=== PATIENT | female | born 2000 | race Hispanic/Latino ===

== ENCOUNTER 2018-07-13 06:44 | Emergency (ER) | payer OTHER ==
[2018-07-13 08:54] LABS: AMORPHOUS SEDIMENT RFX SMALL (NEGATIVE); KETONE, URINE AUTO RFX NEGATIVE (NEGATIVE); NITRITE, URINE AUTO RFX NEGATIVE (NEGATIVE); RBC, URINE AUTO RFX 12 /HPF (0-3); SPECIFIC GRAVITY UR AUTO RFX 1.017 (1.002-1.035); SQUAM EPITHELIAL CELL UR AURFX 36 /HPF (0-6)
[2018-07-13 08:56] LABS: LEUKOCYTE ESTERASE UR AUTO RFX 3+ (NEGATIVE); WBC, URINE AUTO RFX 95 /HPF (0-3)
== END 2018-07-13 10:11 | disposition home or self-care (01) ==
LOC: M ED 06:44
DX: O26.891 Other specified pregnancy related conditions, first trimester (principal); Z3A.13 13 weeks gestation of pregnancy
CPT/HCPCS: 76801

== ENCOUNTER 2018-08-15 10:01 | Emergency (ER) | payer OTHER ==
[2018-08-15] MEDS: NS 1,000 ML IV (10:29)
[2018-08-15 10:37] LABS: BASO % 0.2 % (0.0-1.0); EOS % 0.2 % (0.0-3.0); HEMATOCRIT 37.4 % (36.0-47.0); HEMOGLOBIN 12.4 g/dl (12.0-15.5); IMMATURE GRANULOCYTE % 0.5 % (0-3.0); LYMPH # 1.4 10^3/uL (1.5-6.5); LYMPH % 16.1 % (24.0-44.0); MEAN CORPUSCULAR HEMOGLOBIN 29.9 pg (27.0-33.0); MEAN CORPUSCULAR HGB CONC 33.2 g/dl (32.0-36.5); MEAN CORPUSCULAR VOLUME 90.1 fl (80.0-96.0); MONO # 0.4 10^3/uL (0.0-0.8); MONO % 4.5 % (0.0-5.0); NEUTROPHILS # 6.6 10^3/uL (1.8-7.7); NEUTROPHILS % 78.5 % (36.0-66.0); PLATELET COUNT, AUTOMATED 145 10^3/uL (150-450); RED BLOOD COUNT 4.15 10^6/uL (4.00-5.40); RED CELL DISTRIBUTION WIDTH 12.7 % (11.5-14.5); WHITE BLOOD COUNT 8.5 10^3/uL (4.0-10.0)
[2018-08-15 10:43] LABS: AMORPHOUS SEDIMENT RFX SMALL (NEGATIVE); KETONE, URINE AUTO RFX NEGATIVE (NEGATIVE); MUCUS, URINE RFX SMALL (NEGATIVE); NITRITE, URINE AUTO RFX NEGATIVE (NEGATIVE); RBC, URINE AUTO RFX 2 /HPF (0-3); SPECIFIC GRAVITY UR AUTO RFX 1.015 (1.002-1.035); SQUAM EPITHELIAL CELL UR AURFX 7 /HPF (0-6)
[2018-08-15 10:51] LABS: LEUKOCYTE ESTERASE UR AUTO RFX 3+ (NEGATIVE); WBC, URINE AUTO RFX 15 /HPF (0-3)
== END 2018-08-15 11:46 | disposition home or self-care (01) ==
LOC: M ED 10:01
DX: O23.12 Infections of bladder in pregnancy, second trimester (principal); Z3A.18 18 weeks gestation of pregnancy
CPT/HCPCS: 76811

== ENCOUNTER 2018-10-18 13:55 | Emergency (ER) | payer OTHER ==
[~2018-10-18] VITALS: Ht 165.1 cm; Wt 78.2 kg
[~2018-10-18 13:55] MED LIST: MACR100C43 PO
[2018-10-18 15:57] VITALS: BP 124/70
== END 2018-10-18 15:59 | disposition home or self-care (01) ==
LOC: M ED 13:55
DX: O99.719 Diseases of the skin and subcutaneous tissue complicating pregnancy, unspecified trimester (principal)

== ENCOUNTER 2018-12-03 10:43 | Outpatient (CLI) | payer OTHER ==
[~2018-12-03] VITALS: Ht 165.1 cm; Wt 84.1 kg
--- NOTE | 2018-12-03 12:10 | IPNPDOC ---
Text Note Date of Service The patient was seen on 12/03/18. NOTE 18 yo at 33+6 weeks presents to L&D with the complaint of left sided abdominal pain that started at 0800 this AM. She describes it as an occasionally sharp, squeezing sensation. It seems to be worse when her baby kicks or moves. She denies any vaginal bleeding. She reports some slight discharge this AM but denies any leakage of fluid. She endorses excellent movement. She also denies any fevers/chills, SOB, chest pain, dysuria, constipation, or urinary frequency/urgency. She has been tolerating a regular diet without issues and denies any nausea or vomiting. She also denies any recent trauma such as falls or recent intercourse. She admits to doing PT this AM on a bicycle. Chaperoned by L&D RN Vitals - VSS, afebrile, normotensive, non tachycardic General - AAOX3, sitting up in bed, NAD, pleasant and conversant Abdomen - Gravid uterus, no fundal tenderness. Mild tenderness to palpation at left sided abdominal wall, just superior to LLQ. No rebound tenderness or guarding. Cervix - Cl/thick/high, posterior. No bleeding. Bedside TAUS - Viable SIUP in cephalic presentation. Anterior placenta. Tenderness appears to be in location of movement of upper extremities. Very active fetus. YENY subjectively normal. FHR tracing - Reactive NST with +accels, no decels. No ctx on toco. No evidence of labor, infection, or acute intra abdominal abnormality. Pain appears to be MSK in origin based on clinical history and exam findings. status is reassuring. Ordered flexeril to be taken at [facility]. Also recommended heating pads and tylenol. Return to care for worsening pain, fevers/chills, SOB, n/v, bleeding, leakage of fluid, decreased movement, or any other urgent concerns. All patient questions answered. DO JOANNE Peters CHRISTOPHER J. DO Dec 03, 2018 12:10
== END 2018-12-03 11:52 | disposition home or self-care (01) ==
LOC: M LDO 10:43
PROVIDERS: ATTEND Obstetrics & Gynecology
DX: O26.893 Other specified pregnancy related conditions, third trimester (principal); R10.32 Left lower quadrant pain; Z3A.33 33 weeks gestation of pregnancy
CPT/HCPCS: 59025; 76815; G0378; G0463

== ENCOUNTER 2018-12-21 18:20 | Outpatient (CLI) | payer OTHER ==
[~2018-12-21] VITALS: Ht 165.1 cm; Wt 85.1 kg
[2018-12-21 18:35] VITALS: BP 133/77
[2018-12-21] MEDS ORDERED: VALA500T5 PO (18:41)
[2018-12-21 19:56] VITALS: BP 142/65
[2018-12-21] MEDS ORDERED: LACTATED RINGER'S 1000 ML IV STA (20:17)
[2018-12-21] MEDS ORDERED: LR 1,000 ML IV SCH (20:17)
[2018-12-21 20:47] VITALS: BP 128/65
[2018-12-21 20:54] LABS: APPEARANCE, URINE CLOUDY (CLEAR); BACTERIA, URINE AUTO 1+ (NEGATIVE); BILIRUBIN, URINE AUTO NEGATIVE (NEGATIVE); BLOOD, URINE BLOOD NEGATIVE (NEGATIVE); COLOR, URINE YELLOW (YELLOW); GLUCOSE, URINE (UA) AUTO 1+ mg/dL (NEGATIVE); KETONE, URINE AUTO TRACE mg/dL (NEGATIVE); LEUKOCYTE ESTERASE, URINE AUTO 3+ (NEGATIVE); MUCUS, URINE SMALL (NEGATIVE); NITRITE, URINE AUTO NEGATIVE (NEGATIVE); PROTEIN, URINE AUTO 1+ mg/dL (NEGATIVE); RBC, URINE AUTO 2 /HPF (0-3); SPECIFIC GRAVITY URINE AUTO 1.025 (1.002-1.035); SQUAMOUS EPITHELIAL CELL UR AU 14 /HPF (0-6); WBC, URINE AUTO 110 /HPF (0-3)
[2018-12-21 21:50] LABS: APPEARANCE, URINE CLEAR (CLEAR); BACTERIA, URINE AUTO NEGATIVE (NEGATIVE); BILIRUBIN, URINE AUTO NEGATIVE (NEGATIVE); BLOOD, URINE BLOOD NEGATIVE (NEGATIVE); COLOR, URINE YELLOW (YELLOW); GLUCOSE, URINE (UA) AUTO NEGATIVE (NEGATIVE); KETONE, URINE AUTO 1+ mg/dL (NEGATIVE); LEUKOCYTE ESTERASE, URINE AUTO NEGATIVE (NEGATIVE); NITRITE, URINE AUTO NEGATIVE (NEGATIVE); PROTEIN, URINE AUTO NEGATIVE (NEGATIVE); RBC, URINE AUTO 1 /HPF (0-3); SQUAMOUS EPITHELIAL CELL UR AU 0 /HPF (0-6); UROBILINOGEN, URINE AUTO 0.2 mg/dL (0.0-2.0); WBC, URINE AUTO 9 /HPF (0-3)
--- NOTE | 2018-12-21 21:57 | IPNPDOC ---
Text Note Date of Service The patient was seen on 12/21/18. NOTE Triage Note Anitha is a 18yo with SIUP at approx 36wk who presents with CC of uncomfortable ctx that began about an hour before she came in, at 1730. She has had no LOF, no vaginal bleeding. Good movement. No other sx. 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 SCE cl/th/high, ctx spaced after receiving IVF. Vitals wnl, benign exam, reassuring status. No e/o UTI. Plan: -safe for discharge home -pt encouraged to hydrate well and rest -keep next routine scheduled OB appt Dr. Susan Dean MD VS,Celine, I+O VS, Celine, I+O Vital Signs Date Time Temp Pulse Resp B/P (MAP) Pulse Ox O2 Delivery O2 Flow Rate FiO2 12/21/18 20:47 94 18 128/65 (86) 12/21/18 19:56 98.7 Susan Dean MD Dec 21, 2018 21:46
== END 2018-12-21 22:09 | disposition home or self-care (01) ==
LOC: M LDO 18:20
PROVIDERS: ATTEND Obstetrics & Gynecology
DX: O26.893 Other specified pregnancy related conditions, third trimester (principal); O47.03 False labor before 37 completed weeks of gestation, third trimester; Z3A.36 36 weeks gestation of pregnancy
CPT/HCPCS: 59025; 81001; 87086; G0378; G0463

== ENCOUNTER 2019-01-05 02:03 | Outpatient (CLI) | payer OTHER ==
[~2019-01-05] VITALS: Ht 165.1 cm; Wt 87.0 kg
[~2019-01-05 02:03] MED LIST changes: +VALA500T5 PO
[2019-01-05 02:22] VITALS: BP 121/81
[2019-01-05 02:57] VITALS: BP 121/75
--- NOTE | 2019-01-05 03:07 | IPNPDOC ---
Text Note Date of Service The patient was seen on 01/05/19. NOTE 19 yo at 38+4 weeks presents to L&D with the complaint of contractions every 15 minutes. She denies any vaginal bleeding or leakage of fluid. She endorses excellent movement. 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 Chaperoned by L&D RN Vitals - VSS, afebrile, normotensive, non tachycardic General - AAOX3, sitting up in bed, NAD Abdomen - Gravid uterus, no fundal tenderness Cervix - Ft/thick/high, posterior FHR: Reactive NST with moderate variability, +accels, no decels. Uterine irritability on toco Patient not in labor. Cervix closed and no ctx seen on toco. Reassuring status. Patient discharged home with return precautions. All questions answered. Sandeep Peters DO A-FIB/CHADSVASC A-FIB History Current/History of A-Fib/PAF?: No SANDEEP PETERS DO Jan 05, 2019 03:07
== END 2019-01-05 03:24 | disposition home or self-care (01) ==
LOC: M LDO 02:03
PROVIDERS: ATTEND Obstetrics & Gynecology
DX: O47.1 False labor at or after 37 completed weeks of gestation (principal); Z3A.38 38 weeks gestation of pregnancy
CPT/HCPCS: 59025; G0378; G0463

== ENCOUNTER 2019-01-09 09:08 | Outpatient (CLI) | payer OTHER ==
[~2019-01-09] VITALS: Ht 165.1 cm; Wt 89.9 kg
[2019-01-09 09:24] VITALS: BP 134/84
[2019-01-09 11:00] VITALS: BP 134/79
== END 2019-01-09 11:16 | disposition home or self-care (01) ==
LOC: M LDO 09:08
PROVIDERS: ATTEND Obstetrics & Gynecology
DX: O47.1 False labor at or after 37 completed weeks of gestation (principal); Z3A.39 39 weeks gestation of pregnancy
CPT/HCPCS: 59025; G0378; G0463

== ENCOUNTER 2019-01-17 18:02 | Inpatient (IN) | payer OTHER ==
[~2019-01-17] VITALS: Ht 165.1 cm; Wt 89.5 kg
[2019-01-17] VITALS (18 sets, daily range): BP systolic 115–143; BP diastolic 57–81
[2019-01-17] MEDS ORDERED: PENICILLIN G POTASSIUM IV 5 MU in D5W MINI-BAG PLUS 100 ML IV STA (19:31)
[2019-01-17] MEDS: LR 1,000 ML IV SCH (19:31)
[2019-01-17] MEDS ORDERED: LACTATED RINGER'S 1000 ML IV STA (19:31)
[2019-01-17] MEDS ORDERED: PROMETHAZINE INJ 25 MG/ML VIAL (J2550) As Ordered ONE (20:03)
--- NOTE | 2019-01-17 20:03 | HPEPDOC ---
Obstetrical History & Physical General Date of Admission January 17, 2019 at 19:21 History of Present Illness Anitha is a 19yo with SIUP at 40w2d by lmp c/w 7wk u/s who presents for leakage of clear fluid since 1729 tonight. She notes very large gush earlier and continued leaking since. Starting to feel more regular ctx, not very uncomfortable yet. No vaginal bleeding. Feels movement. No f/c/n/v. 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 History: Herpes simplex virus(HSV) (no hx of any outbreak that patient knows of) Past Medical History Medical History Overweight (BMI 27) Surgical History: [place] teeth Family History Significant Family History: No pertinent family hx Social History Marital Status: Other (engaged) Psychosocial History: No pertinent psych hx * Smoker: non-smoker Alcohol: Denies Drugs: denies Imunizations Tdap status: current Influenza Status: current Allergies Coded Allergies: No Known Allergies (Unverified , 07/13/18) Medications Scheduled Valacyclovir HCl (Valacyclovir) 500 Mg Tablet, 1 TAB PO DAILY Physical Examination Physical Examination GENERAL: Alert and oriented times three. ABDOMEN: Gravid and non-tender to touch. 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): glistening on perineum, pooling of clear fluid in vagina, nitrazine positive, NO HSV lesions of vulva/vaginal vault/cervix Vital Signs/I&O Vital Signs Date Time Temp Pulse Resp B/P (MAP) Pulse Ox O2 Delivery O2 Flow Rate FiO2 5/9/19 18:19 98.8 108 18 126/77 (93) Pertinent Laboratoy Data Blood Type: O+ RBC Antibody Screen: Negative HIV: Negative Hepatitis B: Negative Hepatitis C: Unknown Rapid Plasma Reagin: Nonreactive Rubella: Immune Varicella: Immune Chlamydia/Gonorrhea: Negative Group B Streptococcus: Positive Cystic Fibrosis: Negative Glucose Tolerance Test: 157 (94/192/156/147) Anatomy Ultrasound Ultrasound Date: Aug 28, 2018 Placenta Location: Anterior Normal Anatomy: Yes Placenta Previa: No Steroid Therapy Steroid Therapy: No Vaginal Examination Dilation: 4 cm Effacement: 70% Station: -2 Cervical Consistency: Soft Cervical Position: Middle Presentation: Cephalic presentation Assessment Heart Rate (FHR): 140 Variability: Moderate Accelerations: Positive Decelerations: None Tocometer Contractions: Yes Frequency: irregular, every 3-7 min. Duration: greater than 60 seconds Strength: palpated as mild Assessment/Plan Assessment Anitha is a 19yo with SIUP at 40w2d by lmp c/w 7wk u/s with SROM, clear, 1730 tonight. GBS positive. SCE 4/75/-2. Irregular ctx. Cat I FHRT. Vitals wnl. SSE shows no HSV lesions. Cephalic by SCE. Positive nitrazine/pooling- grossly ruptured. A1GDM, overweight (starting BMI 27) with excessive weight gain (39lb), HSV IgM positive during but no history of any outbreak ever (taking valtrex since 36wk), molluscum contagiosum over buttocks Plan Admit and orient. Marketing Project Lead and consent. Diet: clear liquids Group B Streptococcus (GBS) positive, PCN per protocol Labs and intravenous (IV) per unit protocol. Lactated Ringers (LR): Bolus 1000 mL, then at 125 mL/hr. Anticipate normal spontaneous delivery () Stadol/phenergan for pain in latent labor, candidate for epidural in active lab or MD Jermaine Tripathi Katrina D MD January 17, 2019 19:54
[2019-01-17] MEDS ORDERED: PROMETHAZINE INJ 25 MG/ML VIAL (J2550) IV ONE (20:15)
[2019-01-17] MEDS ORDERED: BUTORPHANOL 2 MG/ML INJ (J0595) IV ONE (20:15)
[2019-01-17 20:18] LABS: HEMATOCRIT 33.1 % (36.0-47.0); HEMOGLOBIN 10.4 g/dl (12.0-15.5); MEAN CORPUSCULAR HEMOGLOBIN 26.1 pg (27.0-33.0); MEAN CORPUSCULAR HGB CONC 31.4 g/dl (32.0-36.5); PLATELET COUNT, AUTOMATED 178 10^3/uL (150-450); RED BLOOD COUNT 3.99 10^6/uL (4.00-5.40); WHITE BLOOD COUNT 10.8 10^3/uL (4.0-10.0)
[2019-01-17] MEDS ORDERED: FENTANYL 2MCG/ML ROPIVACAINE 0.2% IN 0.9% NACL 100ML IVBAG As Ordered ONE (21:56)
[2019-01-17] MEDS ORDERED: EPIDURAL/PCA KEYS XX PRN (23:30)
[2019-01-17] MEDS ORDERED: FENTANYL/ROPIVACAINE/NACL BAG 100 ML EPIDURAL SCH (23:30)
[2019-01-17] MEDS ORDERED: diphenhydrAMINE INJ 50MG/ML VIAL (J1200) IV PRN (23:30)
[2019-01-17] MEDS ORDERED: ePHEDrine SULFATE 25 MG/5 ML(5MG/ML) SYRINGE IV PRN (23:30)
[2019-01-17] MEDS ORDERED: ONDANSETRON 4MG/2ML VIAL (J2405) IV PRN (23:30)
[2019-01-17] MEDS ORDERED: NALOXONE INJ 0.4 MG/1 ML VIAL (J2310) IV PRN (23:30)
[2019-01-17] MEDS ORDERED: REFRIGERATOR IV KEYS XX PRN (23:30)
[2019-01-17] MEDS ORDERED: EPIDURAL COMMENT XX SCH (23:30)
[2019-01-17] MEDS ORDERED: LACTATED RINGER'S 1000 ML IV PRN (23:30)
[2019-01-18] VITALS (15 sets, daily range): BP systolic 118–139; BP diastolic 62–83
[2019-01-18] MEDS ORDERED: PENICILLIN G POTASSIUM IV 2.5 MU in APPROPRIATE DILUENT 1 EA IV SCH ×2
[2019-01-18] MEDS ORDERED: OXYTOCIN 30 UNITS IN 0.9% NaCl 500ML IV BAG (J2590) As Ordered ONE (03:03)
[2019-01-18] MEDS: LR 1,000 ML IV SCH (03:31)
--- NOTE | 2019-01-18 04:20 | DNPDOC ---
[facility] Delivery Note Delivery Note DATE OF DELIVERY: 18 Jan 2019 PREDELIVERY DIAGNOSIS: 40w3d SROM POST DELIVERY DIAGNOSIS: Delivered PROCEDURE: Spontaneous vaginal delivery FIRE MANAGEMENT SPECIALIST: Dr. Susan Dean MD ANESTHESIA: epidural, 10cc of 1% lidocaine for repair ESTIMATED BLOOD LOSS: 250 mL FINDINGS: 7 pound 12 ounce (3510g) female infant, Score 9/9 DELIVERY SUMMARY: Anitha is a 19yo [id number] s/p uncomplicated at 40w3d after presenting with clear SROM that occurred at 17:30, delivering at 03:47 on 18 Jan 2019. She presented at 4cm, received an epidural and progressed to C/C/+1 at which point she began pushing. head delivered OA, restituted CICI. Left anterior shoulder delivered easily, right compound hand noted, posterior shoulder and corpus followed. Infant was vigorous with spontaneous cry, placed on maternal abdomen. Nose and mouth were suctioned with bulb suction, apgars 9/9. Cord clamped x2 after 2 minutes and cut by FOB. Cord blood obtained for MBT O pos. Uterine massage performed, traction on the umbilical cord, placenta delivered spontaneously and intact with 3 vessel centrally inserted cord. IV pitocin was given per protocol, bimanual massage was performed and uterus then firm at u- 2cm. Inspection of perineum and vagina revealed superficial bilateral labial lacerations repaired with 3-0 vicryl in routine fashion, after anesthetizing with 1% lidocaine, with complete hemostasis and good cosmesis. All counts correct x2. Total hemostasis assured. Mom and infant were doing well when I left the room. MD Jermaine Tripathi Katrina D MD January 18, 2019 04:20
[2019-01-18] MEDS ORDERED: OXYTOCIN DRIP 30 UNITS in APPROPRIATE DILUENT 1 EA IV SCH (04:21)
[2019-01-18] MEDS ORDERED: MEASLES,MUMPS,RUBELLA VACCINE INJ (MMR-II) (90707) SC SCH (04:30)
[2019-01-18] MEDS ORDERED: ACETAMINOPHEN TAB 650MG DOSE (2X325MG) PO PRN (04:30)
[2019-01-18] MEDS ORDERED: ACETAMINOPHEN 500 MG TAB PO PRN (04:30)
[2019-01-18] MEDS ORDERED: DOCUSATE SODIUM 100 MG CAP PO PRN (04:30)
[2019-01-18] MEDS ORDERED: RHOGAM 300 MCG (1500 IU) INJ (J2790) IM SCH (04:30)
[2019-01-18] MEDS ORDERED: DIBUCAINE 1% OINTMENT 30GM TOP PRN (04:30)
[2019-01-18] MEDS ORDERED: IBUPROFEN 600 MG TAB PO PRN (04:30)
[2019-01-18] MEDS ORDERED: LIDOCAINE 1% MDV 20ML VIAL INFIL ONE (04:30)
[2019-01-18] MEDS: IBUPROFEN 800 MG TAB PO PRN ×2 (05:59→17:48)
[2019-01-18] MEDS: PRENATAL VITAMINS CHEWABLE TABLET PO SCH (08:55)
[2019-01-19 06:00] VITALS: BP 127/79
--- NOTE | 2019-01-19 07:22 | IPNPDOC ---
Progress Note Date of Service: January 19, 2019 Progress Note Ms. Abhijit Elizabeth is a 19 yo G1 now P1 who underwent an uncomplicated yesterday ([id number]) at ~0400 after being admitted for active labor. She is currently recovering on the betancourt. Anitha reports feeling well this AM. She feels tired, but was able to get some sleep yesterday and last night. She has ambulated to the restroom and voided without issues. She is tolerating a regular diet and has minimal lochia. She has mild cramping but this is controlled with motrin and tylenol. Vitals - VSS, normotensive, afebrile, non tachycardic General - AAOX3, sitting up in bed, NAD Abdomen - Fundus firm at U-2. No fundal tenderness Extremities - No edema Ms. Abhijit Elizabeth is doing well and is making an appropriate recovery. Continue to encourage ambulation and today. Continue routine care. Anticipate discharge home tomorrow. Sandeep Peters DO VS, I&O, 24H, Fishbone Vital Signs/I&O Vital Signs Date Time Temp Pulse Resp B/P (MAP) Pulse Ox O2 Delivery O2 Flow Rate FiO2 01/19/19 06:00 98.5 107 16 127/79 (95) 99 I&O- Last 24 Hours up to 6 AM 01/19/19 06:00 Intake Total 500 ml Output Total 1100 ml Balance -600 ml SANDEEP PETRES DO January 19, 2019 07:22
[2019-01-19] MEDS: PRENATAL VITAMINS CHEWABLE TABLET PO SCH (08:38)
[2019-01-19] MEDS: IBUPROFEN 800 MG TAB PO PRN (12:38)
[2019-01-19 18:00] VITALS: BP 137/76
[2019-01-20 06:01] VITALS: BP 126/59
--- NOTE | 2019-01-20 07:46 | IPNPDOC ---
Text Note Date of Service The patient was seen on 01/20/19. NOTE PPD2 States feeling well, pain controlled with prescribed meds. Baby bonding and feeding well. No heavy VB. Lochia slowing. Ambulatory. Tolerating PO without issues. Voiding spont. No CP/LP/SOB. VSSAF NAD A&O LE no C/C/E Ut at U-2, firm a/p: Doing well. Cont routine care. D/C today. Sessions A-FIB/HERO A-FIB History Current/History of A-Fib/PAF?: No VS,Fishbone, I+O VS, Fishbone, I+O Vital Signs Date Time Temp Pulse Resp B/P (MAP) Pulse Ox O2 Delivery O2 Flow Rate FiO2 01/20/19 06:01 98.0 79 16 126/59 (81) 01/19/19 18:00 99 SESSIONS,MONIE Schmidt MD January 20, 2019 07:46
--- NOTE | 2019-01-20 07:50 | DS.PDOC ---
Discharge Summary General Date of Admission January 17, 2019 at 19:21 Date of Discharge [id number] Discharge Summary ADMITTING DIAGNOSES: Active labor, SROM DISCHARGE DIAGNOSES: Same, HOSPITAL COURSE: Admitted and delivery uncomplicated, . course uncomplicated. DISCHARGE MEDICATIONS: Motrin, Lanolin DISCHARGE INSTRUCTIONS: Nothing in the vagina for 6 weeks. F/U in OBGYN clinic in 6-8 weeks. Sessions Vital Signs/I&Os Vital Signs Date Time Temp Pulse Resp B/P (MAP) Pulse Ox O2 Delivery O2 Flow Rate FiO2 01/20/19 06:01 98.0 79 16 126/59 (81) 01/19/19 18:00 99 Discharge Medications Scheduled Valacyclovir HCl (Valacyclovir) 500 Mg Tablet, 1 TAB PO DAILY, (Reported) Allergies Coded Allergies: No Known Allergies (Unverified , 07/13/18) SESSIONSMONIE MD January 20, 2019 07:50
[2019-01-20] MEDS: PRENATAL VITAMINS CHEWABLE TABLET PO SCH (07:51)
[2019-01-20] MEDS ORDERED: IBUP80TA PO (07:53)
[2019-01-20] MEDS ORDERED: PRENCHW PO (07:53)
== END 2019-01-20 12:20 | disposition home or self-care (01) | DRG 807 ==
LOC: M LDO 18:02 → M LDI 19:21 → M OBS 01-18 06:12
PROVIDERS: ADMIT Obstetrics & Gynecology; ATTEND Obstetrics & Gynecology
PROC: 10E0XZZ Delivery of Products of Conception, External Approach (ICD-10-PCS; principal; 2019-01-18)
PROC: 0HQ9XZZ Repair Perineum Skin, External Approach (ICD-10-PCS; 2019-01-18)
DX: O24.420 Gestational diabetes mellitus in childbirth, diet controlled (principal); Z37.0 Single live birth; Z3A.40 40 weeks gestation of pregnancy; O26.03 Excessive weight gain in pregnancy, third trimester; O99.824 Streptococcus B carrier state complicating childbirth; O70.0 First degree perineal laceration during delivery

== ENCOUNTER 2019-03-02 11:51 | Emergency (ER) | payer OTHER ==
[~2019-03-02] VITALS: Ht 165.1 cm; Wt 78.2 kg
[2019-03-02 11:51] VITALS: BP 137/75
[~2019-03-02 11:51] MED LIST changes: +IBUP80TA PO; +PRENCHW PO
[2019-03-02] MEDS ORDERED: NS 1,000 ML IV ONE (12:30)
[2019-03-02] MEDS ORDERED: ONDANSETRON 4MG/2ML VIAL (J2405) IV ONE (12:30)
[2019-03-02] MEDS ORDERED: KETOROLAC 30 MG/ML VIAL (J1885) IV ONE (12:30)
[2019-03-02 12:32] LABS: BASO % 0.4 % (0.0-1.0); EOS # 0.1 10^3/uL (0.0-0.50); EOS % 1.4 % (0.0-3.0); HEMATOCRIT 40.5 % (36.0-47.0); HEMOGLOBIN 12.7 g/dl (12.0-15.5); LYMPH # 1.8 10^3/uL (1.5-6.5); MEAN CORPUSCULAR HGB CONC 31.4 g/dl (32.0-36.5); MEAN CORPUSCULAR VOLUME 82.8 fl (80.0-96.0); MONO # 0.4 10^3/uL (0.0-0.8); MONO % 6.9 % (0.0-5.0); NEUTROPHILS # 3.4 10^3/uL (1.8-7.7); NEUTROPHILS % 60.1 % (36.0-66.0); PLATELET COUNT, AUTOMATED 159 10^3/uL (150-450); RED BLOOD COUNT 4.89 10^6/uL (4.00-5.40); WHITE BLOOD COUNT 5.6 10^3/uL (4.0-10.0)
[2019-03-02 12:57] LABS: ALBUMIN 3.2 GM/DL (3.2-5.2); ALT/SGPT 46 U/L (12-78); AMYLASE 69 U/L (25-115); BILIRUBIN,DIRECT < 0.1 MG/DL (0.0-0.2); BILIRUBIN,TOTAL 0.4 MG/DL (0.2-1.0); BLOOD UREA NITROGEN 10 MG/DL (7-18); CARBON DIOXIDE LEVEL 27 MEQ/L (21-32); CHLORIDE LEVEL 105 MEQ/L (98-107); CREATININE FOR GFR 0.72 MG/DL (0.55-1.30); GLOMERULAR FILTRATION RATE > 60.0 (>60); GLUCOSE, FASTING 112 MG/DL (70-100); LIPASE 211 U/L (73-393); POTASSIUM SERUM 4.2 MEQ/L (3.5-5.1); SODIUM LEVEL 139 MEQ/L (136-145); TOTAL PROTEIN 7.2 GM/DL (6.4-8.2)
[2019-03-02] MEDS ORDERED: ISOVUE-370 76% 100ML VIAL (Q9967) As Ordered ONE (13:03)
[2019-03-02] MEDS ORDERED: MACR100C43 PO (14:35)
[2019-03-02] MEDS ORDERED: NITROFURANTOIN (MACROBID) 100 MG CAP PO ONE (14:45)
--- NOTE | 2019-03-02 16:26 | REP ---
Pelvic ultrasound with transabdominal and Doppler ultrasound assessment for right lower quadrant/pelvic pain: The uterus is anteverted and slightly enlarged measuring 9.5 x 5.1 by 9 x 1 cm. The myometrium is unremarkable. The endometrium is diffusely thickened measuring 18.8 mm. Right ovary: The right ovary is normal size measuring 4.8 x 2.4 x 2.7 cm. There is no dominant mass or cyst. There is vascular flow with the parenchymal artery Doppler resistive index measuring 0.51. Left ovary: The left ovary is normal size measuring 3.4 x 2.2 x 1.9 cm. There is no dominant mass or cyst. There is vascular flow with the parenchymal artery Doppler resistive index measuring 0.54. No free fluid in the pelvis. Impression: Diffusely thickened endometrium. Otherwise, negative pelvic ultrasound. Electronically Signed by Jamie Barraza MD 03/02/2019 04:17 P
--- NOTE | 2019-03-02 16:27 | REP ---
CT of the abdomen and pelvis with IV contrast, without bowel contrast: Comparison is the pelvic ultrasound performed this same date. The visualized lung rodas are unremarkable. The hepatic parenchyma, gallbladder, pancreas and spleen are unremarkable. The adrenals are unremarkable. The kidneys are unremarkable. Abdominal aorta is unremarkable. There is no retroperitoneal adenopathy or mass. The bowel and mesentery are unremarkable. There is no ascites. Pelvis: The appendix is not identified, however, there is no pericecal phlegmon or abscess. The terminal ileum is unremarkable. There is a trace of ascites in the cul-de-sac. The pelvic bowel loops are unremarkable. The uterus and adnexa are unremarkable. The bladder is unremarkable. Impression: There is a trace of ascites in the cul-de-sac. Otherwise, negative CT of the abdomen and pelvis. The appendix cannot be identified, however, there is no pericecal phlegmon or abscess. The terminal ileum is unremarkable. Electronically Signed by Jamie Barraza MD 03/02/2019 04:18 P
--- NOTE | 2019-03-04 13:22 | ED PDOC ---
Post-Departure Follow-Up ft chucho garcia faxed formal report of pelvic us for fu Bernarda Baez MD Mar 04, 2019 13:21
== END 2019-03-02 14:43 | disposition home or self-care (01) ==
LOC: M ED 11:51
DX: N39.0 Urinary tract infection, site not specified (principal); B02.9 Zoster without complications
CPT/HCPCS: 36415; 74177; 76856; 80048; 80076; 81001; 82150; 83690; 84702; 85025; 87086; 93976; 96374; 96375; 99284; J1885; J2405; Q9967

== ENCOUNTER 2019-03-30 20:53 | Emergency (ER) | payer OTHER ==
[~2019-03-30] VITALS: Ht 165.1 cm; Wt 77.5 kg
[2019-03-30 20:53] VITALS: BP 126/79
[2019-03-30 21:19] LABS: BASO % 0.2 % (0.0-1.0); EOS % 0.6 % (0.0-3.0); HEMATOCRIT 34.7 % (36.0-47.0); HEMOGLOBIN 11.3 g/dl (12.0-15.5); LYMPH # 2.3 10^3/uL (1.5-6.5); LYMPH % 36.3 % (24.0-44.0); MEAN CORPUSCULAR HEMOGLOBIN 26.5 pg (27.0-33.0); MEAN CORPUSCULAR HGB CONC 32.6 g/dl (32.0-36.5); MEAN CORPUSCULAR VOLUME 81.5 fl (80.0-96.0); MONO # 0.6 10^3/uL (0.0-0.8); MONO % 8.9 % (0.0-5.0); NEUTROPHILS # 3.5 10^3/uL (1.8-7.7); NEUTROPHILS % 53.8 % (36.0-66.0); PLATELET COUNT, AUTOMATED 193 10^3/uL (150-450); RED BLOOD COUNT 4.26 10^6/uL (4.00-5.40); WHITE BLOOD COUNT 6.4 10^3/uL (4.0-10.0)
[2019-03-30 21:39] LABS: HCG, SERUM QUALITATIVE NEGATIVE (NEGATIVE)
[2019-03-30 21:47] LABS: ALBUMIN 3.5 GM/DL (3.2-5.2); ALT/SGPT 49 U/L (12-78); BILIRUBIN,DIRECT < 0.1 MG/DL (0.0-0.2); BILIRUBIN,TOTAL 0.3 MG/DL (0.2-1.0); BLOOD UREA NITROGEN 9 MG/DL (7-18); CALCIUM LEVEL 8.5 MG/DL (8.5-10.1); CARBON DIOXIDE LEVEL 27 MEQ/L (21-32); CHLORIDE LEVEL 106 MEQ/L (98-107); CREATININE FOR GFR 0.83 MG/DL (0.55-1.30); GLOMERULAR FILTRATION RATE > 60.0 (>60); GLUCOSE, FASTING 99 MG/DL (70-100); LIPASE 195 U/L (73-393); POTASSIUM SERUM 3.6 MEQ/L (3.5-5.1); SODIUM LEVEL 140 MEQ/L (136-145)
[2019-03-30] MEDS ORDERED: CIPROFLOXACIN 500 MG TAB PO ONE (23:00)
[2019-03-30] MEDS ORDERED: LIDOCAINE 1% SDV 5 ML VIAL DILUENT ONE (23:00)
[2019-03-30] MEDS ORDERED: cefTRIAXone SOD 1 GM VIAL (J0696) IM ONE (23:00)
[2019-03-30] MEDS ORDERED: KETOROLAC 60 MG/2 ML VIAL (J1885) IM ONE (23:00)
[2019-03-30] MEDS ORDERED: IBUP80TA PO (23:53)
[2019-03-30] MEDS ORDERED: CIPR-249 PO (23:53)
== END 2019-03-31 00:10 | disposition home or self-care (01) ==
LOC: M ED 20:53
DX: N10 Acute pyelonephritis (principal)
CPT/HCPCS: 80048; 80076; 81001; 83690; 84703; 85025; 87086; 96372; 99283; J0696; J1885

== ENCOUNTER 2019-05-27 20:43 | Emergency (ER) | payer OTHER ==
[~2019-05-27] VITALS: Ht 165.1 cm; Wt 76.4 kg
[~2019-05-27 20:43] MED LIST changes: +CIPR-249 PO
[2019-05-27 20:44] VITALS: BP 131/81
[2019-05-27 21:29] LABS: BASO % 0.3 % (0.0-1.0); EOS % 0.6 % (0.0-3.0); HEMATOCRIT 39.5 % (36.0-47.0); HEMOGLOBIN 12.9 g/dl (12.0-15.5); LYMPH # 2.1 10^3/uL (1.5-5.0); LYMPH % 34.1 % (24.0-44.0); MEAN CORPUSCULAR HGB CONC 32.7 g/dl (32.0-36.5); MEAN CORPUSCULAR VOLUME 85.9 fl (80.0-96.0); MONO # 0.5 10^3/uL (0.0-0.8); MONO % 7.8 % (0.0-5.0); NEUTROPHILS # 3.5 10^3/uL (1.5-8.5); NEUTROPHILS % 56.9 % (36.0-66.0); PLATELET COUNT, AUTOMATED 182 10^3/uL (150-450); WHITE BLOOD COUNT 6.2 10^3/uL (4.0-10.0)
[2019-05-27 21:49] LABS: ALBUMIN 3.5 GM/DL (3.2-5.2); ALT/SGPT 35 U/L (12-78); BILIRUBIN,DIRECT < 0.1 MG/DL (0.0-0.2); BILIRUBIN,TOTAL 0.3 MG/DL (0.2-1.0); BLOOD UREA NITROGEN 9 MG/DL (7-18); CALCIUM LEVEL 8.9 MG/DL (8.5-10.1); CARBON DIOXIDE LEVEL 27 MEQ/L (21-32); CHLORIDE LEVEL 106 MEQ/L (98-107); CREATININE FOR GFR 0.75 MG/DL (0.55-1.30); GLOMERULAR FILTRATION RATE > 60.0 (>60); GLUCOSE, FASTING 110 MG/DL (70-100); LIPASE 214 U/L (73-393); POTASSIUM SERUM 3.9 MEQ/L (3.5-5.1); SODIUM LEVEL 140 MEQ/L (136-145); TOTAL PROTEIN 7.3 GM/DL (6.4-8.2)
[2019-05-27] MEDS ORDERED: CIPR-249 PO (22:58)
[2019-05-27] MEDS ORDERED: IBUP-1022 PO (22:58)
--- NOTE | 2019-05-27 23:07 | REPVR ---
EXAM: US Pelvis Complete, Transabdominal EXAM DATE/TIME: 05/27/2019 10:30 PM CLINICAL HISTORY: 19 years old, female; Pelvic pain; Additional info: Llq pain ovarian cyst TECHNIQUE: Imaging protocol: Real-time transabdominal pelvic ultrasound with image documentation. Complete exam. Duplex images required to evaluate vascular conditions. COMPARISON: US PELVIC NON-OB COMPLETE 03/02/2019 1:01 PM FINDINGS: Uterus/cervix: The uterus measures 8.2 cm in its cephalocaudad dimension and 4.5 x 6.4 cm in its AP and lateral dimensions transabdominal. The uterus measures 9.6 cm in its cephalocaudad dimension and 4.7 x 5.8 cm in its AP and lateral dimensions transvaginal. The endometrium measures 16 mm transabdominal and 19 mm transvaginal. Right adnexa: The right ovary measures 4.3 x 3.4 x 3.1 cm and demonstrates arterial and venous blood flow. Left adnexa: The left ovary measures 2.3 x 2.3 x 1.9 cm and demonstrates arterial and venous blood flow. No cyst. Free fluid: None. Bladder: The bladder is decompressed and measures 2.7 x 2.2 x 4.6 cm. IMPRESSION: 1. Slight prominence of the endometrium measuring up to 19 mm transvaginal. 2. Otherwise negative pelvic sonogram. Electronically signed by: Russell Krishna On 05/27/2019 23:06:55 PM
== END 2019-05-27 23:11 | disposition home or self-care (01) ==
LOC: M ED 20:43
DX: N39.0 Urinary tract infection, site not specified (principal)

== ENCOUNTER 2019-08-13 14:58 | Emergency (ER) | payer OTHER ==
[~2019-08-13] VITALS: Ht 165.1 cm; Wt 73.2 kg
[~2019-08-13 14:58] MED LIST changes: +IBUP-1022 PO
[2019-08-13] MEDS ORDERED: NORG0.25 (16:49)
--- NOTE | 2019-08-13 17:20 | ECGEPIP ---
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
[2019-08-13] MEDS ORDERED: NAPROXEN 250 MG TAB PO ONE (17:30)
--- NOTE | 2019-08-13 17:48 | REP ---
Clinical: Left shoulder pain . Technique: Internal rotation, external rotation, and Y view left shoulder . Findings: No acute fracture or dislocation. The acromioclavicular and glenohumeral joints are intact. No periarticular calcifications or degenerative changes are appreciated. Sub acromial space is normal. Surrounding soft tissues are unremarkable. Impression: Normal left shoulder radiographs. Electronically Signed by Darien Anderson MD 08/13/2019 05:39 P
[2019-08-13 18:22] VITALS: BP 139/82
[2019-08-13] MEDS ORDERED: NAPR-837 PO (18:39)
== END 2019-08-13 18:45 | disposition home or self-care (01) ==
LOC: M ED 14:58
DX: M25.512 Pain in left shoulder (principal); R20.2 Paresthesia of skin; Z87.828 Personal history of other (healed) physical injury and trauma; Z79.3 Long term (current) use of hormonal contraceptives

== ENCOUNTER 2021-03-27 08:29 | Emergency (ER) | payer OTHER ==
[~2021-03-27] VITALS: Ht 165.1 cm; Wt 75.1 kg
[2021-03-27 08:29] VITALS: BP 127/69
[~2021-03-27 08:29] MED LIST changes: +NAPR-837 PO; +NORG0.25
[2021-03-27] MEDS ORDERED: MACR100C43 PO (09:39)
[2021-03-27 11:44] LABS: GC DNA AMPLIFICATION NEGATIVE (NEGATIVE)
== END 2021-03-27 09:53 | disposition home or self-care (01) ==
LOC: M ED 08:29
DX: R30.0 Dysuria (principal)